=== PATIENT | male | born 1935 | race Two or more races ===

== ENCOUNTER → 2022-03-26 09:07 | Outpatient (BNVA) | payer OTHER, SELFPAY | PROVIDERS: PCP Internal Medicine; Visit Provider Internal Medicine Rheumatology | DX: G56.03 Carpal tunnel syndrome, bilateral upper limbs (principal); M19.041 Primary osteoarthritis, right hand; M19.042 Primary osteoarthritis, left hand | CPT/HCPCS: 99212 ==

== ENCOUNTER 2022-08-20 14:56 | Outpatient (REF) | payer OTHER, SELFPAY | END 2022-08-20 14:57 | disposition home or self-care (01) | LOC: HO.LNP 14:56 | PROVIDERS: Visit Provider Internal Medicine Rheumatology | DX: M19.011 Primary osteoarthritis, right shoulder (principal); G56.03 Carpal tunnel syndrome, bilateral upper limbs; M19.041 Primary osteoarthritis, right hand; M19.042 Primary osteoarthritis, left hand; M47.812 Spondylosis without myelopathy or radiculopathy, cervical region; M17.12 Unilateral primary osteoarthritis, left knee | CPT/HCPCS: 20610; 87070; 87073; 87205; 89060; 99212 ==

== ENCOUNTER 2023-02-15 14:13 | Outpatient (RCR) | payer MEDICARE, OTHER, SELFPAY | END 2023-05-16 14:40 | disposition home or self-care (01) | LOC: HO.WCC 14:13 | PROVIDERS: PCP Internal Medicine; Visit Provider Physician Assistant | DX: E11.621 Type 2 diabetes mellitus with foot ulcer (principal); E11.51 Type 2 diabetes mellitus with diabetic peripheral angiopathy without gangrene; L97.428 Non-pressure chronic ulcer of left heel and midfoot with other specified severity; E11.40 Type 2 diabetes mellitus with diabetic neuropathy, unspecified; E11.22 Type 2 diabetes mellitus with diabetic chronic kidney disease; I12.9 Hypertensive chronic kidney disease with stage 1 through stage 4 chronic kidney disease, or unspecified chronic kidney disease; N18.4 Chronic kidney disease, stage 4 (severe); Z99.2 Dependence on renal dialysis; Z79.4 Long term (current) use of insulin | CPT/HCPCS: 97597; 99213 ==

== ENCOUNTER 2023-06-23 14:30 | Emergency (ER) | payer OTHER, SELFPAY ==
[2023-06-23] VITALS (7 sets, daily range): BP systolic 119–163; BP diastolic 63–86; PULSE 72–80; RESP 16–20; TEMP 36.4–36.8; O2SAT 96–100; BMI 26.3
--- NOTE | ~2023-06-23 | CT_ITS ---
EXAMINATION: CT ABDOMEN AND PELVIS WITHOUT CONTRAST CLINICAL INFORMATION: Abdominal pain in 87-year-old COMPARISON: 12/10/2007 TECHNIQUE: Multidetector volumetric imaging was performed from the superior aspect of the liver through the pubic symphysis. Sagittal and coronal reformatted images were obtained on the technologist's workstation. This CT examination was performed using dose optimization techniques as appropriate, variously including the following: *Automated exposure control *Adjustment of mA and/or kV according to patient size (this includes techniques or standardized protocols for targeted exams where dose is matched to indication/reason for exam; i.e. extremities or head) *Use of iterative reconstruction technique DLP: 977.05 mGy-cm FINDINGS: LUNG BASES: There is moderate pleural effusion on the right associated with atelectasis. LIVER, GALLBLADDER, AND BILIARY TREE: Liver is slightly heterogeneous with mildly nodular contour and enlarged, surrounded by trace of ascites. Gallbladder is surgically absent. PANCREAS: Unremarkable. SPLEEN: Spleen measured 13.6 cm, mildly enlarged. ADRENAL GLANDS: Unremarkable. KIDNEYS AND URETERS: There is small cortical cyst in left kidney no evidence of hydroureteronephrosis. There is small cortical cyst in the right kidney with nonobstructing punctate calculi and vascular calcifications. BLADDER: Unremarkable. GASTROINTESTINAL TRACT: The small and large bowel are unremarkable. The appendix is not seen. ABDOMINAL WALL: There is transabdominal catheter seen on the left most likely peritoneal dialysis catheter coiled in the pelvis. There is left inguinal hernia containing fluid and tip of sigmoid colon. Without evidence of incarceration. There is small fat-containing hernia in the supraumbilical midline. The injection granuloma seen in the anterior abdominal wall bilaterally. LYMPH NODES: Normal. VASCULAR: There are atherosclerotic changes in abdominal aorta, common iliac arteries, aortic tributaries. PELVIC VISCERA: Unremarkable. OSSEOUS STRUCTURES: There are multilevel degenerative changes in lumbar spine CT/CT abdomen pelvis wo IV con IMPRESSION: 1. Left inguinal hernia containing fluid and tip of sigmoid colon, without evidence of incarceration. Small fat-containing supraumbilical hernia. 2. Right pleural effusion and atelectasis. 3. Hepatosplenomegaly. Trace of ascites surrounding liver, possibly early cirrhosis 4. Peritoneal dialysis catheter in the pelvis. Fleischner guidelines were followed.
--- NOTE | 2023-06-23 15:10 | ED_ITS ---
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 This has been going on for the past few days was advised to come in by the nurse that cares for patient. Denies fevers, chills, nausea, vomiting headache, vision changes, dizziness, chest pain, shortness of breath. Related Data Home Medications Medication Instructions Recorded Confirmed acetaminophen 325 mg tablet mg PO 08/20/22 amlodipine 10 mg tablet 10 mg PO DAILY 08/20/22 blood sugar diagnostic (OneTouch #10 ea 08/20/22 Ultra Test strips) bumetanide 1 mg tablet 1 mg PO DAILY 08/20/22 calcitriol 0.25 mcg capsule 0.25 mcg PO DAILY 08/20/22 clotrimazole-betamethasone 1 appl topical BID 08/20/22 %-0.05 % topical cream glucagon 1 mg solution for mg IM DIRECTED diabetes mellitus 08/20/22 injection (Glucagon Emergency Kit) hydralazine 50 mg tablet 50 mg PO BID 08/20/22 hydromorphone 2 mg tablet mg PO 08/20/22 insulin lispro 100 unit/mL subcut 08/20/22 subcutaneous pen insulin syringe-needle U-100 1/2 #10 ea 08/20/22 mL 28 gauge x /2 (Sure Comfort Insulin Syringe) metoprolol tartrate 100 mg tablet 100 mg PO BID 08/20/22 pen needle, diabetic 32 gauge x #50 ea 08/20/2209/12 (BD Ultra-Fine Micro Pen Needle) sennosides 8.6 mg capsule (senna) 8.6 mg PO DAILY 08/20/22 sodium bicarbonate 650 mg tablet 650 mg PO BID 08/20/22 vitamin B complex and vitamin C 1 cap PO DAILY 08/20/22 no.20-folic acid 1 mg capsule (Virt-Caps) warfarin 5 mg tablet 5 - 7.5 mg PO DAILY 08/20/22 Allergies Allergy/AdvReac Type Severity Reaction Status Date / Time No Known Allergies Allergy Verified 06/23/23 14:54 [No Known Allergies*] Review of Systems 2 Review of Systems: Constitutional : No Weight loss, No Fever, No Chills, No Fatigue, No Malaise ENT/Mouth : No sore throat, No Rhinorrhea Eyes: No Eye Pain, No Swelling, No Redness Cardiovascular : No Chest Pain, No SOB, No Dyspnea on Exertion, No Orthopnea, No Edema, No Palpitations Respiratory : No Cough, No Sputum, No Wheezing Gastrointestinal : No Nausea, No Vomiting, No Diarrhea, No Constipation, No abdominal Pain, No Hematochezia, No Melena Genitourinary : No Dysuria, No Urinary Frequency, No Hematuria, Musculoskeletal : No joint pain, No Myalgias, No Joint Swelling Skin : No Skin Lesions, No rash Neuro : No Weakness, No Numbness, No Dizziness, No Headache Psych : No Anxiety/Panic, No Depression All other systems reviewed and are negative Yes all other systems are reviewed and are negative [facility] Past Medical History Attestation statement: The following information was validated with the patient. Source: old records reviewed and nursing notes reviewed Family History Family History Father Diabetes Mother Stroke Social History Social History Household Members: Spouse Housing: Apartment Are you a primary respiratory care assistant to a significant other at home: No Do you presently have visiting nurse or other home services: No Alcohol intake: never Patient Tobacco Use Status: Never used Tobacco Smoked in Last 30 Days: No e-Cigarette/Vaping Use: Never Used Use of substances other than those prescribed or required for medical reasons: No Advance Directives: No Advance Directives Information Provided: No service: No Current occupational status: disabled Physical Exam 2 Vital Signs: Vital Signs: Last Vital Signs Temp 97.5 F 06/23/23 19:01 Pulse 79 06/23/23 19:03 Resp 18 06/23/23 19:01 BP 163/86 H 06/23/23 19:01 Pulse Ox 98 06/23/23 19:03 O2 Del Method Room Air 06/23/23 19:03 O2 Flow Rate 2 06/23/23 19:01 BMI result Body Mass Index 26.3 vss Appearance: Alert.? Oriented X3.? No acute distress.? Head: Normocephalic, atraumatic, no step-offs or deformities Eyes: Pupils equal, round and reactive to light.? ENT: Pharynx normal.? Neck: Normal inspection.? Neck supple.? CVS: Normal heart rate and rhythm.? Pulses normal.? Respiratory: No respiratory distress.? Breath sounds normal.? Abdomen: Soft and slight discomfort with palpation throughout abdomen. Skin: Skin warm and dry.? Normal skin color.? Normal skin turgor.? Extremities: No lower extremity edema.? No calf ttp. global weakness Neuro: Oriented X 3.? No motor deficit.? No sensory deficit. CN 2-12 intact Course Reevaluation(s) Reevaluation #1: Patient's labs are still pending. CT scan pending. Sign-out given to Sanjuana Mcginnis Time: 16:34 Reevaluation #2: Patient's labs showed a hgb of 7.0. Patient's previous hgb according to [facility] records was 8.9 in January of 2023. Patient's CR is 6.13 which is consistent for this patient. CT abd/pelvis showed a left inguinal hernia containing fluid and tip of sigmoid colon without evidence of incarceration, a right pleural effusion, and peritoneal dialysis catheter in the pelvis. Patient's INR is 2.8. Consulted with my attending physician, Dr. Zavala, who recommended giving the patient 1 unit of blood and transferring the patient to a center that is capable of peritoneal dialysis. I attempted to contact the patient's Gluer Machine Operator, Dr. Bradshaw, who did not return my call. I spoke with [facility], [facility], [facility], and [facility] who all declined the patient due to capacity. Spoke with our hospitalist who also declined the patient due to inability to perform peritoneal dialysis. I informed the patient and his of the need for transfer to somewhere further, potentially the [facility] or [place]. The patient and the patient's both adamantly declined this. They stated they would like to sign out against medical advice after receiving his transfusion of blood. The patient and his state that they informed the EMS crew that picked them up that they wanted to be taken to [facility] directly. Patient and his state that the EMS crew informed the patient and his that it wasn't possible and they had to come to the nearest facility which was [place]. I went over the risks of signing out against medical advice with the patient and his , in great detail. They verbalized understanding of the risks and continued to request to sign out against medical advice. AMA form obtained. Time: 20:49 Medical Decision Making Medical Decision Making MDM Narrative: Is an 87-year-old male presenting to the emergency department with blood in peritoneal dialysis bag. Physical examination with slight abdominal tenderness on palpation. Concerns for complications with peritoneal fluid, possible infection. Although nursing notes is blood in urine this is not the case low suspicion for UTI or cystitis will rule out however. Will rule out anemia, electrolyte abnormalities. Will also rule out SBP although unlikely based on patient history and presentation. Plan at this time labs, imaging, urine. Differential Diagnosis Differential Diagnoses: The differential diagnosis associated with the presentation includes Concerns for complications with peritoneal fluid, possible infection. Although nursing notes is blood in urine this is not the case low suspicion for UTI or cystitis will rule out however. Will rule out anemia, electrolyte abnormalities. Will also rule out SBP although unlikely based on patient history and presentation. Admission/Observation Consideration of admission/observation: Escalation of care including admission/observation considered Lab Data 06/23/23 16:37 06/23/23 16:37 Labs: Lab Results 06/23/23 06/23/23 06/23/23 Range/Units 16:37 17:17 18:07 WBC 9.9 (4.8-10.8) X10*3/uL RBC 2.86 L (4.60-5.80) X10*6/uL Hgb 7.0 L* (14.0-18.0) g/dl Hct 23.6 L (42.0-52.0) % MCV 82.5 (80.0-98.0) fL MCH 24.5 L (27.0-33.0) pg MCHC 29.7 L (31.0-36.0) g/dl RDW 22.3 H (11.0-16.0) % Plt Count 294 (160-400) X10*3/uL MPV 9.3 L (9.4-12.4) fL Immature Gran % (Auto) 1.4 H (0.0-0.4) % Neut % (Auto) 68.3 (45-73) % Lymph % (Auto) 16.3 L (20-40) % [place] % (Auto) 11.2 H (2-11) % Eos % (Auto) 2.5 (0-4) % Baso % (Auto) 0.3 (0-2) % Lymph # (Auto) 1.6 (1.2-4.9) X10*3/uL [place] # (Auto) 1.1 (0.1-1.2) X10*3/uL Eos # (Auto) 0.3 (0.0-0.4) X10*3/uL Baso # (Auto) 0.0 (0.0-0.2) X10*3/uL Abs Immat Gran (auto) 0.14 H (0.00-0.03) X10*3/uL Absolute Neuts (auto) 6.8 (2.0-8.3) x10*3/uL Absolute Nucleated RBC 0.000 (0.0-0.012) X10*3/uL Nucleated RBC % (auto) 0.0 (0.0-0.2) /100WBC PT 33.6 H (11.1-13.3) SEC INR 2.8 H (0.9-1.1) Sodium 139 (135-145) mmol/L Potassium 3.3 (3.3-5.1) mmol/L Chloride 103 (96-108) mmol/L Carbon Dioxide 23 (22-29) mmol/L Anion Gap 16 (12-20) BUN 60 H (9-16) mg/dL Creatinine 6.13 H* (0.5-1.4) mg/dL Estim Creat Clear Calc 7.3 Estimated GFR 9 Random Glucose 75 (60-115) mg/dL Calcium 8.9 (8.4-10.2) mg/dL Total Bilirubin 0.2 (0.0-1.0) mg/dL AST 17 (5-37) U/L ALT 17 (0-40) U/L Alkaline Phosphatase 157 H (39-117) U/L Total Protein 6.0 L (6.5-8.0) g/dL Albumin 2.0 L (3.5-5.0) g/dL Urine Color Yellow Urine Appearance Cloudy Urine pH 6.0 (5.0-9.0) Ur Specific [place] 1.015 (1.005-1.025) Urine Protein 100 (2+) H (Neg-Trace) mg/dL Urine Glucose (UA) Negative (Negative) mg/dL Urine Ketones Negative (Negative) mg/dL Urine Blood Small (1+) H (Negative) Urine Nitrite Negative (Negative) Ur Leukocyte Esterase Large (3+) H (Negative) Urine RBC >20 H (0-2) /HPF Urine WBC >50 H (0-5) /HPF Ur Squamous Epith Cells 6-10 (0-2) /HPF Urine Bacteria 1+ (None Seen) Hyaline Casts 3-5 (0-2) /LPF Blood Type B Positive Antibody Screen NEGATIVE Crossmatch See Detail Independent Historian Clinical information obtained from an independent historian. History obtained from or confirmed by: Other () Chronic Conditions Patient?s care impacted by: Other (CKD ) Discharge Plan Discharge Clinical Impression: Complication of peritoneal dialysis, Anemia Patient Disposition: Left Against Medical Advice Instructions: Anemia (ED) Prescriptions: No Action hydralazine 50 mg tablet 50 mg PO BID amlodipine 10 mg tablet 10 mg PO DAILY senna 8.6 mg capsule 8.6 mg PO DAILY Glucagon Emergency Kit (human) 1 mg recon soln IM DIRECTED insulin lispro 100 unit/mL insulin pen subcut Virt-Caps 1 mg capsule 1 cap PO DAILY bumetanide 1 mg tablet 1 mg PO DAILY (DME) OneTouch Ultra Test Strip See Rx Instructions .ROUTE .MEDSUPPLY Qty: 10 Rx Instructions: As directed warfarin 5 mg tablet 5 - 7.5 mg PO DAILY hydromorphone 2 mg tablet PO (DME) insulin syringe-needle U-100 [Sure Comfort Insulin Syringe] 1/2 mL 28 gauge x 1/2 syringe See Rx Instructions .ROUTE TID Qty: 10 Rx Instructions: As directed acetaminophen 325 mg tablet PO (DME) pen needle, diabetic [BD Ultra-Fine Micro Pen Needle] 32 gauge x 1/4 needle See Rx Instructions .ROUTE .MEDSUPPLY Qty: 50 Rx Instructions: As directed clotrimazole-betamethasone 1-0.05 % cream topical BID metoprolol tartrate 100 mg tablet 100 mg PO BID sodium bicarbonate 650 mg tablet 650 mg PO BID calcitriol 0.25 mcg capsule 0.25 mcg PO DAILY Stand Alone Forms: Against Medical Advice
--- NOTE | 2023-06-23 15:44 | PC.NURSE ---
pt currently in CT at this time. will drawn labs and send when pt returns.
[2023-06-23 16:43] LABS: Basophils Percent Auto 0.3 % (0-2); Eosinophils Absolute Auto 0.3 X10*3/uL (0.0-0.4); Eosinophils Percent Auto 2.5 % (0-4); Hematocrit 23.6 % (42.0-52.0); Imm Gran Abs Auto 0.14 X10*3/uL (0.00-0.03); Imm Gran Pct Auto 1.4 % (0.0-0.4); Lymphocytes Absolute Auto 1.6 X10*3/uL (1.2-4.9); Lymphocytes Percent Auto 16.3 % (20-40); MANUAL DIFF FLAG NO; Mean Corpuscular HGB Conc 29.7 g/dl (31.0-36.0); Mean Corpuscular Hemoglobin 24.5 pg (27.0-33.0); Mean Corpuscular Volume 82.5 fL (80.0-98.0); Mean Platelet Volume 9.3 fL (9.4-12.4); Monocytes Absolute Auto 1.1 X10*3/uL (0.1-1.2); Monocytes Percent Auto 11.2 % (2-11); Neutrophils Absolute Auto 6.8 x10*3/uL (2.0-8.3); Neutrophils Percent Auto 68.3 % (45-73); Platelet Count 294 X10*3/uL (160-400); Red Blood Count 2.86 X10*6/uL (4.60-5.80); Red Cell Distribution Width 22.3 % (11.0-16.0); White Blood Count 9.9 X10*3/uL (4.8-10.8)
[2023-06-23 16:53] LABS: INTERNATIONAL NORM RATIO 2.8 (0.9-1.1); Prothrombin Time 33.6 SEC (11.1-13.3)
[2023-06-23 17:01] LABS: Alanine Aminotransferase 17 U/L (0-40); Alkaline Phosphatase 157 U/L (39-117); Anion Gap 16 (12-20); Aspartate Amino Transferase 17 U/L (5-37); Bilirubin Total 0.2 mg/dL (0.0-1.0); Blood Urea Nitrogen 60 mg/dL (9-16); Calcium 8.9 mg/dL (8.4-10.2); Carbon Dioxide 23 mmol/L (22-29); Chloride 103 mmol/L (96-108); Creatinine Clr Calc Pharmacy 7.3; Estimated Glomerular Filt Rate 9; Glucose Random 75 mg/dL (60-115); Potassium 3.3 mmol/L (3.3-5.1); Sodium 139 mmol/L (135-145)
--- NOTE | 2023-06-23 17:30 | PC.NURSE ---
tech bedside obtaining urine and labs - will send when able.
[2023-06-23 17:54] LABS: Appearance Urine Cloudy; Color Urine Yellow; Glucose Urine UA Negative (Negative); Leukocyte Esterase Urine Large (3+) (Negative); Nitrite Urine Negative (Negative); Specific Gravity - Urine 1.015 (1.005-1.025); UMIC TRIGGER UACC YES; Urine Blood Small (1+) (Negative); Urine Ketones Negative (Negative); Urine Protein 100 (2+) mg/dL (Neg-Trace)
[2023-06-23 18:06] LABS: Bacteria Urine 1+ (None Seen); RBC Urine >20 /HPF (0-2); UACC Culture Trigger YES; WBC Urine >50 /HPF (0-5)
--- NOTE | 2023-06-23 19:01 | PC.NURSE ---
pt continues o remain a&o at this time, nsr on the quality assurance monitor body. pt still verbalizing no pain at this time. no SOB/WOB noted at this time. pt was currently on 2L via NC - d/c'd NC at this time to assess how pt does on RA. O2 resting at 98% RA at this time. respirations remain even and unlabored. able to speak in full sentences w/o difficulty. bedside for support. call samuels placed within reach.
[2023-06-23 21:33] LABS: Glucose Peritoneal Fluid 966 MG/DL; LDH Peritoneal Fluid < 10 U/L; Total Protein Peritoneal Fluid < 0.2 GM/DL
[2023-06-24] MEDS: oxyCODONE HCl Immed Release 5 MG TABLET 10 MG PO (00:29)
--- NOTE | 2023-06-24 01:15 | PC.NURSE ---
wipes given for to change pt brief. Per she does not need help, will use call samuels if need assistance
[2023-06-24 01:49] VITALS: BP 128/58; PULSE 70; RESP 18; TEMP 36.7
--- NOTE | 2023-06-24 02:16 | PC.NURSE ---
pt refuses to sign ama form as she states she is leaving due to us not being able give him the medical help that he needs. Pt request ambulance back to his private residence and she will bring him to another hospital in the am . Will let provider know
--- NOTE | 2023-06-28 09:39 | ED.MALEGU ---
HPI - Male Genitourinary General Chief complaint: Urogenital-Male Stated complaint: BLOOD IN CATH Time Seen by Provider: 06/23/23 14:46 Source: patient and family () Mode of arrival: ambulatory Limitations: no limitations Related Data Home Medications Medication Instructions Recorded Confirmed acetaminophen 325 mg tablet mg PO 08/20/22 amlodipine 10 mg tablet 10 mg PO DAILY 08/20/22 blood sugar diagnostic (OneTouch #10 ea 08/20/22 Ultra Test strips) bumetanide 1 mg tablet 1 mg PO DAILY 08/20/22 calcitriol 0.25 mcg capsule 0.25 mcg PO DAILY 08/20/22 clotrimazole-betamethasone 1 appl topical BID 08/20/22 %-0.05 % topical cream glucagon 1 mg solution for mg IM DIRECTED diabetes mellitus 08/20/22 injection (Glucagon Emergency Kit) hydralazine 50 mg tablet 50 mg PO BID 08/20/22 hydromorphone 2 mg tablet mg PO 08/20/22 insulin lispro 100 unit/mL subcut 08/20/22 subcutaneous pen insulin syringe-needle U-100 1/2 #10 ea 08/20/22 mL 28 gauge x 1/2 (Sure Comfort Insulin Syringe) metoprolol tartrate 100 mg tablet 100 mg PO BID 08/20/22 pen needle, diabetic 32 gauge x #50 ea 08/20/22 1/4 (BD Ultra-Fine Micro Pen Needle) sennosides 8.6 mg capsule (senna) 8.6 mg PO DAILY 08/20/22 sodium bicarbonate 650 mg tablet 650 mg PO BID 08/20/22 vitamin B complex and vitamin C 1 cap PO DAILY 08/20/22 no.20-folic acid 1 mg capsule (Virt-Caps) warfarin 5 mg tablet 5 - 7.5 mg PO DAILY 08/20/22 Allergies Allergy/AdvReac Type Severity Reaction Status Date / Time No Known Allergies Allergy Verified 06/23/23 14:54 [No Known Allergies*] [facility] Family History Family History Father Diabetes Mother Stroke Social History Social History Household Members: Spouse Housing: Apartment Are you a primary customer care team coach to a significant other at home: No Do you presently have visiting nurse or other home services: No Alcohol intake: never Patient Tobacco Use Status: Never used Tobacco Smoked in Last 30 Days: No e-Cigarette/Vaping Use: Never Used Use of substances other than those prescribed or required for medical reasons: No Advance Directives: No Advance Directives Information Provided: No service: No Current occupational status: disabled Physical Exam Vital Signs: Vital Signs: Last Vital Signs Temp 98.1 F 06/24/23 01:49 Pulse 70 06/24/23 01:49 Resp 18 06/24/23 01:49 BP 128/58 L 06/24/23 01:49 Pulse Ox 96 06/23/23 22:14 O2 Del Method Room Air 06/23/23 22:14 O2 Flow Rate 2 06/23/23 19:01 BMI result Body Mass Index 26.3 Course Reevaluation(s) Reevaluation #1: I did call patient Medications Administered Discontinued Medications Generic Name Dose Route Start Last Admin Trade Name Freq PRN Reason Stop Dose Admin Sodium Chloride 100 mls @ 100 mls/hr 06/23/23 20:16 06/24/23 01:50 Ns IV 06/23/23 21:15 Infused ONCE ONE Infusion Oxycodone HCl 10 mg 06/24/23 00:23 06/24/23 00:29 Oxycodone Hcl Immed Release 5 Mg Tablet PO 06/24/23 00:24 10 mg ONCE ONE Administration Medical Decision Making Lab Data 06/23/23 16:37 06/23/23 16:37 Labs: Lab Results 06/23/23 06/23/23 06/23/23 Range/Units 16:37 17:17 18:07 WBC 9.9 (4.8-10.8) X10*3/uL RBC 2.86 L (4.60-5.80) X10*6/uL Hgb 7.0 L* (14.0-18.0) g/dl Hct 23.6 L (42.0-52.0) % MCV 82.5 (80.0-98.0) fL MCH 24.5 L (27.0-33.0) pg MCHC 29.7 L (31.0-36.0) g/dl RDW 22.3 H (11.0-16.0) % Plt Count 294 (160-400) X10*3/uL MPV 9.3 L (9.4-12.4) fL Immature Gran % (Auto) 1.4 H (0.0-0.4) % Neut % (Auto) 68.3 (45-73) % Lymph % (Auto) 16.3 L (20-40) % [place] % (Auto) 11.2 H (2-11) % Eos % (Auto) 2.5 (0-4) % Baso % (Auto) 0.3 (0-2) % Lymph # (Auto) 1.6 (1.2-4.9) X10*3/uL [place] # (Auto) 1.1 (0.1-1.2) X10*3/uL Eos # (Auto) 0.3 (0.0-0.4) X10*3/uL Baso # (Auto) 0.0 (0.0-0.2) X10*3/uL Abs Immat Gran (auto) 0.14 H (0.00-0.03) X10*3/uL Absolute Neuts (auto) 6.8 (2.0-8.3) x10*3/uL Absolute Nucleated RBC 0.000 (0.0-0.012) X10*3/uL Nucleated RBC % (auto) 0.0 (0.0-0.2) /100WBC PT 33.6 H (11.1-13.3) SEC INR 2.8 H (0.9-1.1) Sodium 139 (135-145) mmol/L Potassium 3.3 (3.3-5.1) mmol/L Chloride 103 (96-108) mmol/L Carbon Dioxide 23 (22-29) mmol/L Anion Gap 16 (12-20) BUN 60 H (9-16) mg/dL Creatinine 6.13 H* (0.5-1.4) mg/dL Estim Creat Clear Calc 7.3 Estimated GFR 9 Random Glucose 75 (60-115) mg/dL Calcium 8.9 (8.4-10.2) mg/dL Total Bilirubin 0.2 (0.0-1.0) mg/dL AST 17 (5-37) U/L ALT 17 (0-40) U/L Alkaline Phosphatase 157 H (39-117) U/L Total Protein 6.0 L (6.5-8.0) g/dL Albumin 2.0 L (3.5-5.0) g/dL Urine Color Yellow Urine Appearance Cloudy Urine pH 6.0 (5.0-9.0) Ur Specific [place] 1.015 (1.005-1.025) Urine Protein 100 (2+) H (Neg-Trace) mg/dL Urine Glucose (UA) Negative (Negative) mg/dL Urine Ketones Negative (Negative) mg/dL Urine Blood Small (1+) H (Negative) Urine Nitrite Negative (Negative) Ur Leukocyte Esterase Large (3+) H (Negative) Urine RBC >20 H (0-2) /HPF Urine WBC >50 H (0-5) /HPF Ur Squamous Epith Cells 6-10 (0-2) /HPF Urine Bacteria 1+ (None Seen) Hyaline Casts 3-5 (0-2) /LPF Peritoneal Tot Protein < 0.2 GM/DL Peritoneal LDH < 10 U/L Peritoneal Glucose 966 MG/DL Blood Type B Positive Antibody Screen NEGATIVE Crossmatch See Detail Discharge Plan Discharge Clinical Impression: Complication of peritoneal dialysis, Anemia Patient Disposition: Left Against Medical Advice Instructions: Anemia (ED) Prescriptions: No Action hydralazine 50 mg tablet 50 mg PO BID amlodipine 10 mg tablet 10 mg PO DAILY senna 8.6 mg capsule 8.6 mg PO DAILY Glucagon Emergency Kit (human) 1 mg recon soln IM DIRECTED insulin lispro 100 unit/mL insulin pen subcut Virt-Caps 1 mg capsule 1 cap PO DAILY bumetanide 1 mg tablet 1 mg PO DAILY (DME) OneTouch Ultra Test Strip See Rx Instructions .ROUTE .MEDSUPPLY Qty: 10 Rx Instructions: As directed warfarin 5 mg tablet 5 - 7.5 mg PO DAILY hydromorphone 2 mg tablet PO (DME) insulin syringe-needle U-100 [Sure Comfort Insulin Syringe] 1/2 mL 28 gauge x 1/2 syringe See Rx Instructions .ROUTE TID Qty: 10 Rx Instructions: As directed acetaminophen 325 mg tablet PO (DME) pen needle, diabetic [BD Ultra-Fine Micro Pen Needle] 32 gauge x 1/4 needle See Rx Instructions .ROUTE .MEDSUPPLY Qty: 50 Rx Instructions: As directed clotrimazole-betamethasone 1-0.05 % cream topical BID metoprolol tartrate 100 mg tablet 100 mg PO BID sodium bicarbonate 650 mg tablet 650 mg PO BID calcitriol 0.25 mcg capsule 0.25 mcg PO DAILY Stand Alone Forms: Against Medical Advice Interventions: ED Discharge Assessment Last Done: 06/24/23 03:43 Discharge Date/Time: 06/24/23 04:09
== END 2023-06-24 04:09 | disposition left against medical advice (07) ==
PROVIDERS: Physician Assistant; Emergency Provider Emergency Medicine; PCP Internal Medicine
DX: D64.9 Anemia, unspecified (principal); T82.838A Hemorrhage due to vascular prosthetic devices, implants and grafts, initial encounter; R10.2 Pelvic and perineal pain; Z79.899 Other long term (current) drug therapy
CPT/HCPCS: 36415; 36430; 74176; 80053; 81001; 82945; 83615; 84157; 85025; 85610; 86850; 86900; 86901; 86923; 87070; 87073; 87086; 87088; 87116; 87186; 87205; 87206; 96360; 96361; 99285; P9016

== ENCOUNTER 2024-02-10 07:31 | Emergency (ER) | payer OTHER, SELFPAY ==
--- NOTE | 2024-02-10 07:38 | ED_ITS ---
HPI - CPR General Chief Complaint: Cardiac Arrest/CPR Stated Complaint: CARDIAC ARREST,ASYSTOLE Time Seen by Provider: 02/10/24 07:38 Source: EMS Mode of arrival: EMS Limitations: other (In cardiac arrest on arrival) History of Present Illness ED Provider: Dr. Acevedo HPI narrative: 88yo male on home dialysis presents in cardiac arrest. Known downtime about 40 minutes with no pulses. Patient was doing peritoneal dialysis at the time of arrest. Presents with right leg IO and Igel for airway. Patient had 6 rounds of epi prior to his arrival. MD complaint: found unresponsive Onset (ago): minute(s) Timing confirmed by: family member Place: home Bystander CPR performed: Yes AED applied by bystander/chief construction inspector: Yes Shock advised: No Initial findings in the field: unresponsive, no respirations, no pulse and PEA ROSC in the field: No Associated injuries: No Related Data Home Medications ?Medication ?Instructions ?Recorded ?Confirmed acetaminophen 325 mg tablet mg PO 08/20/22 amlodipine 10 mg tablet 10 mg PO DAILY 08/20/22 blood sugar diagnostic (OneTouch #10 ea 08/20/22 Ultra Test strips) bumetanide 1 mg tablet 1 mg PO DAILY 08/20/22 calcitriol 0.25 mcg capsule 0.25 mcg PO DAILY 08/20/22 clotrimazole-betamethasone 1 appl topical BID 08/20/22 %-0.05 % topical cream glucagon 1 mg solution for mg IM DIRECTED diabetes mellitus 08/20/22 injection (Glucagon Emergency Kit) hydralazine 50 mg tablet 50 mg PO BID 08/20/22 hydromorphone 2 mg tablet mg PO 08/20/22 insulin lispro 100 unit/mL subcut 08/20/22 subcutaneous pen insulin syringe-needle U-100 1/2 #10 ea 08/20/22 mL 28 gauge x 1/2 (Sure Comfort Insulin Syringe) metoprolol tartrate 100 mg tablet 100 mg PO BID 08/20/22 pen needle, diabetic 32 gauge x #50 ea 08/20/2209/12 (BD Ultra-Fine Micro Pen Needle) sennosides 8.6 mg capsule (senna) 8.6 mg PO DAILY 08/20/22 sodium bicarbonate 650 mg tablet 650 mg PO BID 08/20/22 vitamin B complex and vitamin C 1 cap PO DAILY 08/20/22 no.20-folic acid 1 mg capsule (Virt-Caps) warfarin 5 mg tablet 5 - 7.5 mg PO DAILY 08/20/22 Allergies Allergy/AdvReac Type Severity Reaction Status Date / Time No Known Allergies Allergy Verified 06/23/23 14:54 [No Known Allergies*] Review of Systems Review of Systems: Yes Unobtainable due to mental status PMFSH Family History Family History Father Diabetes Mother Stroke Social History Social History Household Members: Spouse Housing: Apartment Are you a primary housekeeper caregiver to a significant other at home: No Do you presently have visiting nurse or other home services: No Alcohol intake: never Patient Tobacco Use Status: Never used Tobacco e-Cigarette/Vaping Use: Never Used Advance Directives: No Advance Directives Information Provided: No service: No Current occupational status: disabled Physical Exam Vital Signs: Vital Signs: BMI result Body Mass Index 24.8 Const: Other: Intubated with Igel on thumper HEENT: Other: fixed and dilated Resp: Other: bilateral BS with bagging Cardio: Other: no heart sounds Neuro: Other: no movement Course Reevaluation(s) Reevaluation #1: Patient received a round of epi, he had been down for over 30 minutes, bedside US showed no heart movement code was called at 7:37am Time: 09:29 Reevaluation #2: I spent 40 minutes of critical care, with interventions, assessments, speaking to patient, consultants, and family. Time: 09:31 Medical Decision Making Differential Diagnosis Differential Diagnoses: The differential diagnosis associated with the presentation includes (ID, cardiac arrest, hyperkalemia were all considered) Admission/Observation Consideration of admission/observation: Escalation of care including admission/observation considered (upon arrival admission was considered) Independent Interpretation I performed an independent interpretation of an: Rhythm Strip (ventricular escape rate of 30) Independent Historian Clinical information obtained from an independent historian. History obtained from or confirmed by: Spouse and EMS Chronic Conditions Patient?s care impacted by: Diabetes, Hypertension and Other (renal failure) Social Determinants Patient?s care significantly limited by Social Determinants of Health including: Low income Discharge Plan Discharge Clinical Impression: Cardiac arrest Patient Disposition: on Arrival Prescriptions: No Action hydralazine 50 mg tablet 50 mg PO BID amlodipine 10 mg tablet 10 mg PO DAILY senna 8.6 mg capsule 8.6 mg PO DAILY Glucagon Emergency Kit (human) 1 mg recon soln IM DIRECTED insulin lispro 100 unit/mL insulin pen subcut Virt-Caps 1 mg capsule 1 cap PO DAILY bumetanide 1 mg tablet 1 mg PO DAILY (DME) OneTouch Ultra Test Strip See Rx Instructions .ROUTE .MEDSUPPLY Qty: 10 Rx Instructions: As directed warfarin 5 mg tablet 5 - 7.5 mg PO DAILY hydromorphone 2 mg tablet PO (DME) insulin syringe-needle U-100 [Sure Comfort Insulin Syringe] 1/2 mL 28 gauge x 1/2 syringe See Rx Instructions .ROUTE TID Qty: 10 Rx Instructions: As directed acetaminophen 325 mg tablet PO (DME) pen needle, diabetic [BD Ultra-Fine Micro Pen Needle] 32 gauge x 1/4 needle See Rx Instructions .ROUTE .MEDSUPPLY Qty: 50 Rx Instructions: As directed clotrimazole-betamethasone 1-0.05 % cream topical BID metoprolol tartrate 100 mg tablet 100 mg PO BID sodium bicarbonate 650 mg tablet 650 mg PO BID calcitriol 0.25 mcg capsule 0.25 mcg PO DAILY Print Language: Swiss
--- NOTE | 2024-02-10 07:59 | PC.NURSE ---
Call made to [facility], spoke to Sophia, patient was declined REF [id number]
--- NOTE | 2024-02-10 08:01 | PC.NURSE ---
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 Right thigh surgical wound, R third digit necrotic. patient has cloth necklace on
[2024-02-10 08:04] VITALS: BMI 24.8
--- NOTE | 2024-02-10 10:59 | PC.NURSE ---
patient family does not have home arranged, given information to call hospital with home information.
== END 2024-02-10 12:16 | disposition expired ==
PROVIDERS: Emergency Provider Emergency Medicine; PCP Internal Medicine
DX: I46.9 Cardiac arrest, cause unspecified (principal); E11.22 Type 2 diabetes mellitus with diabetic chronic kidney disease; I12.9 Hypertensive chronic kidney disease with stage 1 through stage 4 chronic kidney disease, or unspecified chronic kidney disease; N18.4 Chronic kidney disease, stage 4 (severe); Z99.2 Dependence on renal dialysis; Z86.711 Personal history of pulmonary embolism; Z79.4 Long term (current) use of insulin; Z79.899 Other long term (current) drug therapy; Z79.01 Long term (current) use of anticoagulants
CPT/HCPCS: 99284